=== PATIENT | female | born 1960 | race Caucasian/White ===

== ENCOUNTER 2019-03-30 09:00 | Emergency (ER) | payer OTHER, BC ==
--- NOTE | 2019-03-30 09:39 | PDOC ---
History of Present Illness - General Chief Complaint: Injury Stated Complaint: LOOSE TOOTH, INJURY Time Seen by Provider: 03/30/19 09:03 - History of Present Illness Initial Comments: 03/30/19 09:33 58 y/o F hx of osteoporosis, ocd, anxiety, eating disorder, presents to the ER with a loose tooth. She hit her mouth with a car door this morning. She denies any falls, or hitting her forehead or top of her head. She had some bleeding at time of event which has since stopped. She denies biting her tongue, any other injuries to her face. Past History - Past Medical History Allergies/Adverse Reactions: Allergies Allergy/AdvReac Type Severity Reaction Status Date / Time No Known Allergies Allergy Verified 04/21/13 19:30 Home Medications: Ambulatory Orders Cetirizine HCl [Zyrtec -] 10 mg PO DAILY 03/30/19 Clonazepam [Klonopin] 1 mg PO ASDIR 03/30/19 Cyclosporine [Restasis] 1 drop OU ASDIR 03/30/19 Montelukast Sodium [Singulair] 10 mg PO DAILY 03/30/19 Raloxifene HCl 60 mg PO ASDIR 03/30/19 COPD: No Psychiatric Problems: Yes (DEPRESSION) - Psycho Social/Smoking Cessation Hx Smoking History: Never smoked Have you smoked in the past 12 months: No Information on smoking cessation initiated: No Hx Alcohol Use: No Drug/Substance Use Hx: No Substance Use Type: None Review of Systems - Review of Systems Constitutional: No: Chills, Fever HEENTM: No: Eye Pain, Ear Pain Respiratory: No: Cough, Shortness of Breath Cardiac (ROS): No: Chest Pain, Lightheadedness ABD/GI: No: Nausea, Vomiting : No: Burning, Dysuria Musculoskeletal: No: Back Pain Integumentary: Yes: Bruising. No: Change in Color Neurological: No: Headache, Numbness Psychiatric: Yes: Anxiety *Physical Exam - Vital Signs Last Vital Signs Temp Pulse Resp BP Pulse Ox 97.6 F 92 H 20 134/74 99 03/30/19 09:01 03/30/19 09:01 03/30/19 09:01 03/30/19 09:01 03/30/19 09:01 - Physical Exam Comments: 03/30/19 09:45 PE: GENERAL: Awake, alert, and fully oriented, in no acute distress, thin appearing HEAD: No signs of trauma, normocephalic, atraumatic EYES: EOMI, sclera anicteric, conjunctiva clear ENT: Auricles normal inspection, hearing grossly normal, nares patent, oropharynx clear without exudates. Moist mucosa. Tooth #8 crown loose. stump intact. mild bruising on lower lip. no lacerations of the tongue NECK: Normal ROM, supple, no lymphadenopathy, JVD, or masses LUNGS: No distress, speaks full sentences, clear to auscultation bilaterally HEART: Regular rate and rhythm, normal S1 and S2, no murmurs, rubs or gallops, peripheral pulses normal and equal bilaterally. ABDOMEN: Soft, nontender, normoactive bowel sounds. EXTREMITIES : Normal inspection, Normal range of motion, no edema. No clubbing or cyanosis NEUROLOGICAL: Cranial nerves II through XII grossly intact. Normal speech, normal gait, SKIN: Warm, Dry, normal turgor, no rashes or lesions noted 03/30/19 10:40 Medical Decision Making - Medical Decision Making 03/30/19 09:38 58 y/o F hx of osteoporosis, ocd, anxiety, eating disorder, presents to the ER with a loose tooth Avulsed crown on tooth #8 Stump intact. Bleeding stopped. light brusing to lower lip , irrigated with saline Patient denies needing pain medications 03/30/19 09:[address] Koehler will see patient next week. recommends soft foods and liquids till then. Discharge - Discharge Information Problems reviewed: Yes Clinical Impression/Diagnosis: Tooth injury Qualifiers: Encounter type: initial encounter Qualified Code(s): S09.93XA - Unspecified injury of face, initial encounter Condition: Stable Disposition: HOME - Admission No - Follow up/Referral - Patient Discharge Instructions Additional Instructions: Eat soft foods and liquids over the next few days. Make an appointment to see your dentist during the upcoming week. your care is not complete until you do so. When brushing or cleaning your teeth do so gently. RETURN TO THE ER if you develop fevers, your mouth begins to swell. The pain around your tooth does not subside with over the counter pain medications like motrin or tylenol. - Post Discharge Activity
[2019-03-30 09:41] VITALS: BP 134/74; PULSE 92; TEMP 97.6; BMI 17.4
--- NOTE | 2019-03-30 09:51 | PDOC ---
Attending Attestation - Resident Resident Name: Rosendo Marie - ED Attending Attestation I have performed the following: I have examined & evaluated the patient, The case was reviewed & discussed with the resident, I agree w/resident's findings & plan - HPI HPI: 03/30/19 09:46 Patient was opening a car door this morning and the door hit her in the mouth. She got an abrasion to her lower lip and it knocked her front tooth loose. There is no other area of impact, no impact to the face or forehead beyond the lip and tooth. There is no neck pain. There is no loss of consciousness. There is no nausea or vomiting. - Physicial Exam PE: 03/30/19 09:47 Patient is awake and alert, vital signs noted. Vital Signs (72 hours) 03/30/19 09:01 Temperature 97.6 F Pulse Rate 92 H Respiratory 20 Rate Blood Pressure 134/74 O2 Sat by Pulse 99 Oximetry (%) The lower lip has a very minor superficial abrasion. There is no laceration. The oropharynx has tooth #8 with a partially avulsed cap on it. The stump and root of the tooth appears intact. There is no gum injury or bleeding. There is no irregularity of the alveolar ridge. - Medical Decision Making 03/30/19 09:49 Impression: Partially evulsed Of a tooth with intact root and stump in proper position. Procedure: The Was still tight on the tooth, although in improper position. With pressure, the went back into normal position with a snap sensation, like snapping into place. After replacing the tooth, it appears to be firmly in position, with no looseness. Patient's primary care dentist was called and the case was discussed. He states there is no urgency, patient can eat a soft diet and see him this week for follow-up evaluation of the stability of the tooth cap. Patient given precautions regarding diet and safety to assure that the Does not become dislodged.
== END 2019-03-30 09:50 | disposition home or self-care (01) ==
LOC: FER 09:00
DX: S00.511A Abrasion of lip, initial encounter (principal); K08.89 Other specified disorders of teeth and supporting structures; W22.8XXA Striking against or struck by other objects, initial encounter; Y93.89 Activity, other specified; Y92.9 Unspecified place or not applicable; M81.0 Age-related osteoporosis without current pathological fracture; F41.1 Generalized anxiety disorder; F41.9 Anxiety disorder, unspecified; F50.9 Eating disorder, unspecified
CPT/HCPCS: 99282-25